=== PATIENT | male | born 2000 | race Caucasian/White ===

== ENCOUNTER 2019-02-13 09:16 | Emergency (ER) | payer OTHER, SELFPAY ==
[2019-02-13 09:17] VITALS: BP 134/74; PULSE 114; RESP 17; TEMP 37.6; O2SAT 96; BMI 32.5
--- NOTE | 2019-02-13 09:24 | RAD_ITS ---
STUDY: X-RAY - RIGHT ANKLE REASON FOR EXAM: Male, 18 years old. Pain and swelling following a twisting injury. TECHNIQUE: 3 view(s) of the ankle. COMPARISON: None. FINDINGS: Normal visualized distal tibia and fibula. Normal medial and lateral malleoli. Normal tibiotalar articulation and ankle mortise. Normal visualized talus and calcaneus. The visualized subtalar, talonavicular, calcaneocuboid and tarsal articulations are normal. Soft tissue swelling overlying the lateral malleolus. RAD/Ankle min 3 Views IMPRESSION: Soft tissue swelling overlying the lateral malleolus. Electronically Signed: Gerardo Kinsey, at 10:31 EST , Service support ,
--- NOTE | 2019-02-13 09:24 | ED.VIS.GEN ---
History of Present Illness Chief Complaint: Fall Informant: Patient Onset: Today Context: Sudden Onset Timing: Continuous Current Severity: Moderate Maximum Severity: Moderate Narrative: Patient is a previously healthy male presents to the emergency department with ankle injury. Patient was walking into work. He stepped in hole and had an inversion injury of his right ankle. He fell and caught himself with his left hand and left elbow. He suffered some abrasions. Denies any pain. He did not strike his head. He has been able to bear weight on the ankle but does admit to increasing pain. He is otherwise been in his normal state of health. Prior similar symptoms: No Recent Illness/Hospitalization: No Past Medical History - Allergies and Home Meds Allergies/Adverse Reactions: Allergies No Known Allergies Allergy (Verified 02/13/19 09:17) Primary Care Physician: Amilcar Degroot [GROUP OF PHYSICIANS] - Prior records reviewed: Yes Past Medical History: None Surgical History: no surgical history Review of Systems General: Denies: Chills, Fever, Sweats Eyes: Denies: Visual changes - bilaterally, Diplopia ENT: Denies: Rhinorrhea, Sore throat Cardiovascular: Denies: Chest pain, Palpitations Respiratory: Denies: Dyspnea, Cough, Dyspnea on exertion Gastrointestinal: Denies: Abdominal pain, Nausea, Vomiting, Diarrhea, Melena, Hematochezia Genitourinary: Denies: Dysuria, Hematuria, Frequency Musculoskeletal: Denies: Back pain, Extremity Pain Skin: Denies: Rash, Wounds Neurological: Denies: Headache, Weakness, Numbness Physical Exam Vital Signs/Narrative: Vital Signs Temp Pulse Resp BP Pulse Ox 02/13/19 09:17 99.6 F H 114 H 17 134/74 H 96 Inital Vital Signs reviewed: Yes General: Well nourished, Well developed, No Acute Distress Head: Normocephalic, Atraumatic Eyes: Perrl, EOMI ENT: Moist mucous membranes, No rhinorrhea Neck: Supple, Nontender Cardiovascular: Regular rate, Regular rhythm, No murmurs Respiratory: No distress, CTA bilaterally, Chest nontender Abdomen: Soft, Nontender, Nondistended, Normal bowel sounds Back: Nontender, Normal Inspection Extremities: No edema, Tenderness - Tenderness over medial malleolus. Rodriguez test negative. Normal pulses. Skin intact. No pain at the head of the fifth metatarsal. No pain at the proximal fibula. Skin: Normal color, - Neurological: Alert, Oriented x3, Cranial nerves II-XII grossly intact, Normal Strength, Normal Sensation Psychological: Normal affect, Normal Mood Diagnostic/Tx/Re-eval - Medical Decision Making Plain films were obtained of the right ankle and reviewed by myself. There is no evidence of acute fracture dislocation. My suspicion is that this is likely secondary to ligamentous sprain. Patient is placed in an Aircast. He declined crutches. He will continue ice and elevation. He will be placed on limited duty at work and given outpatient follow-up with corporate care. He will be discharged home. Impression 1. Right ankle sprain ED Disposition - Plan for ED Patient: Instructions: Sprain, Ankle, with X-Ray Referrals: [facility] [GROUP OF PHYSICIANS] -
[2019-02-13] MEDS: Ibuprofen 600 MG Tablet PO (09:50)
[2019-02-13] MEDS: Diphth,Pertuss(Acell),Tet Vac 0.5 ML Vial IM (09:51)
--- NOTE | 2019-02-13 10:48 | ED.RN ---
NO AIR CASTS AVAILABLE, OK TO [facility] WRAP PER DR GARCIA
== END 2019-02-13 10:49 | disposition home or self-care (01) ==
PROVIDERS: Emergency Provider Emergency Medicine
DX: S93.401A Sprain of unspecified ligament of right ankle, initial encounter (principal); X50.1XXA Overexertion from prolonged static or awkward postures, initial encounter; Y93.01 Activity, walking, marching and hiking; Y92.9 Unspecified place or not applicable
CPT/HCPCS: 73610; 90471; 90715; 99282

== ENCOUNTER 2020-05-17 16:32 | Emergency (ER) | payer OTHER, SELFPAY ==
[2019-07-21 12:58] VITALS: BMI 32.5
[2020-05-17 16:32] VITALS: BP 152/85; PULSE 100; RESP 18; TEMP 36.2; O2SAT 97; BMI 31.1
--- NOTE | 2020-05-17 16:39 | ED.RN ---
NO OLD EKGS
--- NOTE | 2020-05-17 17:23 | EKG12_ITS ---
Test Reason : Blood Pressure : / mmHG Vent. Rate : 090 BPM Atrial Rate : 090 BPM P-R Int : 122 ms QRS Dur : 092 ms QT Int : 374 ms P-R-T Axes : 034 028 046 degrees QTc Int : 457 ms Normal sinus rhythm Normal ECG Confirmed by BOBO JONES, VIVIANA ([id number]), international editorial producer DANISHA CRAIG ([id number]) on 05/20/2020 2:21:46 PM Referred By: CHAUNCEY Confirmed By:VIVIANA BROUSSARD MD
--- NOTE | 2020-05-17 17:26 | ED.VISSUMM ---
- ER Visit Summary Date of Service: 05/17/20 Chief Complaint: Chest tingling History of Present Illness: The patient is a 19 M presenting with tingling in his chest. He states this is not really a pain, it is a strange sensation in his chest that began in April. States it started out intermittent and has been constant now for the past week and a half. He denies shortness of breath. Denies fever or cough. Denies other complaints. Denies PE/DVT risk factors. He does have increased stress. Physical Examination: Vitals are stable. Patient is afebrile. Alert no acute distress. HEENT exam is unremarkable. Neck is supple. Lungs are clear and equal bilaterally. Heart is regular rate and rhythm. Abdomen is soft nontender nondistended. Extremities are unremarkable. Skin is warm and dry. No focal neurologic deficit. Remainder of exam is unremarkable. Emergency Department Course and Treatment: EKG is sinus rhythm rate of 90 with no acute ischemic changes. Chest x-ray read by myself and radiology shows no acute process. CBC, chemistries unremarkable. Lipase is normal. Troponin is negative. D-dimer is normal. Patient is resting comfortably on reevaluation. Advised to follow-up with primary care physician. Advised return to the ED for worsening complaints. Disposition: Discharge home Impression: Atypical chest pain This note was generated with [employer] dictation software. It may contain incorrect words, spelling, and punctuation that were not noted in review of the chart prior to signing ED Disposition - Plan for ED Patient: Referrals: Care Physician,No Primary [Primary Care Provider] -
--- NOTE | 2020-05-17 17:40 | RAD_ITS ---
STUDY: X-RAY CHEST REASON FOR EXAM: Male, 19 years old. Chest pain, chest tingling, discomfort, on and off x 2 weeks TECHNIQUE: Single AP portable view of the chest. COMPARISON: None. FINDINGS: EKG leads overlie the chest The lungs are clear and expanded. There is no demonstrated pleural abnormality. Normal size heart. Normal mediastinum and mayur. Normal visualized pulmonary arteries. Normal visualized aortic arch and descending thoracic aorta. Normal visualized thoracic spine. Normal visualized ribs, clavicles, and shoulders. There is no demonstrated abnormality of the visualized soft tissue structures of the upper abdomen. RAD/Chest 1 View (Portable) IMPRESSION: Normal x-ray examination of the chest. Electronically Signed: Avery Webber MD at 17:53 EST , Service support ,
[2020-05-17 17:42] LABS: Absolute Lymphocyte Count 2.85 X10^3/uL (0.83-4.51); Absolute Neutrophil Count 5.6 X10^3/uL (2.0-7.7); Basophil# 0.02 X10^3/uL; Basophil% 0.2 % (0-1); Eosinophil# 0.09 X10^3/uL; Hematocrit 44.9 % (40-54); Hemoglobin 14.8 g/dL (13.0-16.5); Lymphocyte # 2.85 X10^3/ul (4.0); Lymphocyte % 31.1 % (19-41); Mean Corpuscular Hgb 27.8 pg (27.0-32.0); Mean Corpuscular Volume 84.4 fL (80-94); Mean Platelet Vol. 9.6 fl (6.2-12.0); Monocyte# 0.63 X10^3/uL; Monocyte% 6.9 % (0-10); NRBC Flagged by Analyzer 0 % (0-5); Neutrophil # 5.55 X10^3/uL (2.7-7.7); Neutrophil % 60.5 % (47-70); Platelet Count 284 K/mm3 (150-450); RBC Distribution Width CV 12.6 % (11.6-14.6); RBC Distribution Width SD 38.1 fl (35.1-43.9); Red Blood Count 5.32 M/mm3 (4.6-6.2); White Blood Count 9.2 K/mm3 (4.4-11.0)
[2020-05-17 17:54] LABS: D-Dimer Quantitative (DVT/PE) 0.34 FEU/ug/m (0.27-0.49)
[2020-05-17 18:03] LABS: Anion Gap 5 (5-15); BUN 13 mg/dL (7-18); BUN/Creat Ratio 15.8 RATIO (10-20); Calcium,Total 9.4 mg/dL (8.5-10.1); Chloride 105 mmol/L (98-107); Creatinine, Serum 0.82 mg/dL (0.70-1.30); EST Glomerular Filtration Rate 125 mL/min (>60); Est Glom Filt Rate - Afr Amer 151 mL/min (>60); Estimated Creatinine Clearance 156.41 ml/min; Glucose 85 mg/dL (74-106); Lipase 59 U/L (73-393); Potassium 3.9 mmol/L (3.5-5.1); Sodium Level 138 mmol/L (136-145)
--- NOTE | 2020-05-17 18:24 | ED.DEP ---
ED Disposition - Plan for ED Patient: Instructions: ED Chest Pain, Uncertain Cause Referrals: Care Physician,No Primary [Primary Care Provider] -
[2020-05-17 18:48] VITALS: BP 129/89; PULSE 92; RESP 16; O2SAT 98
== END 2020-05-17 18:50 | disposition home or self-care (01) ==
PROVIDERS: Emergency Provider Emergency Medicine
DX: R07.89 Other chest pain (principal)
CPT/HCPCS: 71045; 80048; 83690; 84484; 85025; 85379; 93005; 99284; A4216